=== PATIENT | male | born 1980 | race Caucasian/White ===

== ENCOUNTER 2022-10-26 08:34 | Emergency (ER) | payer MEDICAID, OTHER ==
[~2022-10-26] VITALS: Ht 182.9 cm; Wt 100.0 kg
[2022-10-26 09:09] LABS: Basophils # (auto) 0.1 10 ^3/uL (0-0.2); Basophils % (auto) 0.9 % (0.0-2.0); Eosinophils # (auto) 0.1 10 ^3/uL (0-0.8); Eosinophils % (auto) 0.8 % (0.0-7.0); Hematocrit 44.4 % (41.0-53.0); Hemoglobin 14.7 g/dL (13.5-17.5); Lymphocytes # (auto) 2.3 10 ^3/uL (0.4-5.4); Lymphocytes % (auto) 24.4 % (10.0-50.0); Mean Corpuscular Hemoglobin 28.3 pg (28.0-32.0); Mean Corpuscular Hgb Conc. 33.2 g/dL (32.0-36.0); Mean Corpuscular Volume 85.3 fL (80.0-100.0); Monocytes # (auto) 0.5 10 ^3/uL (0-1.3); Monocytes % (auto) 5.7 % (0.0-12.0); Neutrophils # (auto) 6.4 10 ^3/uL (1.6-8.6); Neutrophils % (auto) 68.2 % (37.0-80.0); Nucleated Red Blood Cells % 0.1 %; White Blood Cell 9.4 10^3/uL (4.4-10.8)
[2022-10-26 09:23] LABS: INR 1.03 (0.9-1.15); Partial Thromboplastin Time 32.2 sec (24.6-33.4)
[2022-10-26 09:28] LABS: Albumin 4.2 g/dL (3.4-5.0); BUN/Creatinine Ratio 13.9; Magnesium 2.7 mg/dL (1.6-2.6); Potassium 4.1 mmol/L (3.5-5.1)
[2022-10-26 09:30] LABS: Bilirubin, Total 0.4 mg/dL (0.2-1.0); Total Protein 8.3 g/dL (6.4-8.2)
[2022-10-26] MEDS: LORazepam 2MG/ML-1ML VIAL IV ONE ×2 (10:45→11:33)
[2022-10-26] MEDS: DONNATAL 5ml ORAL Elix (BELLADONNA ALK-PHENOBARB) PO ONE (14:20)
[2022-10-26] MEDS: SODIUM CHLORIDE 0.9% 1,000 ML IVB ONE (14:22)
[2022-10-26] MEDS: PANTOPRAZOLE 40 MG TAB PO ONE (14:23)
[2022-10-26] MEDS: MAALOX PLUS or MAALOX 30 ML PO ONE (14:23)
[2022-10-26] MEDS: METOCLOPRAMIDE HCL 5MG/ml INJ 2ml VIAL IV ONE (14:23)
[2022-10-26] MEDS: LIDOCAINE VISCOUS 2% 15ML UD PO ONE (14:24)
[2022-10-26 16:35] LABS: Barbiturate Scree,Urine NEGATIVE (NEGATIVE); Benzodiazephine Screen, Urine NEGATIVE (NEGATIVE); Cannabinoid Screen, Urine NEGATIVE (NEGATIVE); Cocaine Screen, Urine NEGATIVE (NEGATIVE); Opiate Scree,Urine NEGATIVE (NEGATIVE)
[2022-10-26 16:44] LABS: Amphetamine Screen, Urine NEGATIVE (NEGATIVE); Phencyclidine Screen, Urine NEGATIVE (NEGATIVE)
[2022-10-26 17:42] VITALS: BP 119/77
[2022-10-26] MEDS ORDERED: THIA100T10 GT (18:06)
[2022-10-26] MEDS ORDERED: FOLITAB19 OR (18:06)
[2022-10-26] MEDS ORDERED: CHL25C GT (18:06)
[2022-10-26] MEDS ORDERED: CHLO25CA56 PO (18:18)
== END 2022-10-26 18:26 | disposition home or self-care (01) ==
LOC: EDBD 08:34 → ER 08:34
DX: R07.89 Other chest pain (principal); F10.239 Alcohol dependence with withdrawal, unspecified; Z79.899 Other long term (current) drug therapy; Y90.8 Blood alcohol level of 240 mg/100 ml or more
CPT/HCPCS: 36415; 71046; 80053; 80307; 80320; 83735; 84484; 85025; 85610; 85730; 93005; 96361; 96374; 96375; 99285; J2060; J2765; J7030